=== PATIENT | male | born 1945 | race Caucasian/White ===

== ENCOUNTER 2022-03-14 12:39 | Emergency (ER) | payer MEDICARE ==
[~2022-03-14] VITALS: Ht 182.9 cm; Wt 63.5 kg
[~2022-03-14 12:39] MED LIST: ASPIRIN EC81 MG PO; ATENOLOL50 MG PO; NORCO 5-325 TA1 EACH PO; OXYCODON-ACETA1 EAC2 PO; OXYCODONE-ACET1 EAC1 PO; PRAVACHOL40 MG PO; PRILOSEC20 MG PO; TRIAMTERENE-HC1 EAC1 PO
[2022-03-14] MEDS ORDERED: AMOX TR-K CLV1 EAC1 PO (14:11)
[2022-03-14] MEDS ORDERED: AMLODIPINE BESYL5 MG PO (14:12)
== END 2022-03-14 16:46 | disposition home or self-care (01) ==
LOC: ED 12:39
DX: R10.30 Lower abdominal pain, unspecified (principal); E87.6 Hypokalemia; I10 Essential (primary) hypertension; Z87.891 Personal history of nicotine dependence; Z79.82 Long term (current) use of aspirin; Z79.899 Other long term (current) drug therapy
CPT/HCPCS: 36415; 74176; 80053; 81001; 85025; 99284-25; A9270

== ENCOUNTER 2022-03-16 17:31 | Emergency (ER) | payer MEDICARE ==
[~2022-03-16] VITALS: Ht 182.9 cm; Wt 63.5 kg
[~2022-03-16 17:31] MED LIST changes: +AMLODIPINE BESYL5 MG PO; +AMOX TR-K CLV1 EAC1 PO
--- OUTSIDE RECORDS SUMMARY | 2022-03-16 17:38 | XMS ---
PreManage Notification: TAMMY MCCAIN Security Animal Caregiver Events No recent Security Events currently on file CRITERIA MET - [facility] - 2 Visits in 30 Days CARE PROVIDERS There are no care providers on record at this time. Madi has no Care Guidelines for this patient. [facility] (12 MO.) [facility] NOTE: Visits indicate total known visits. ED/C VISIT TRACKING (12 MO.) 03/16/2022 17:31 [facility] [place] TYPE: Emergency COMPLAINT: - DEHYDRATION 03/14/2022 12:40 [facility] TYPE: Emergency COMPLAINT: - ABDOMINAL PAIN INPATIENT VISIT TRACKING (12 MO.) No inpatient visits to display in this time frame [email or web address]
[2022-03-16] MEDS ORDERED: K-TAB ER20 MEQ PO (20:09)
== END 2022-03-16 20:18 | disposition home or self-care (01) ==
LOC: ED 17:31
DX: I12.9 Hypertensive chronic kidney disease with stage 1 through stage 4 chronic kidney disease, or unspecified chronic kidney disease (principal); N18.9 Chronic kidney disease, unspecified; E87.6 Hypokalemia; Z86.73 Personal history of transient ischemic attack (TIA), and cerebral infarction without residual deficits; Z87.891 Personal history of nicotine dependence; Z79.899 Other long term (current) drug therapy
CPT/HCPCS: 36415; 80053; 99284; A9270